=== PATIENT | male | born 1945 ===

== ENCOUNTER 2017-07-08 09:07 | Day surgery (SDC) | payer MEDICARE ==
[~2017-07-08] VITALS: Ht 177.8 cm; Wt 88.8 kg
[2017-07-08] MEDS ORDERED: LISI5 PO (09:48)
[2017-07-08] MEDS ORDERED: LEVSOD75 PO (09:48)
== END 2017-07-08 11:33 | disposition home or self-care (01) ==
LOC: ORSCSDS 09:07
PROVIDERS: Orthopaedic Surgery
PROC: 01N50ZZ Release Median Nerve, Open Approach (ICD-10-PCS; principal; 2017-07-08 10:45)
DX: G56.02 Carpal tunnel syndrome, left upper limb (principal); I10 Essential (primary) hypertension; E03.9 Hypothyroidism, unspecified; Z87.891 Personal history of nicotine dependence; Z79.899 Other long term (current) drug therapy
CPT/HCPCS: J2250; J3010; J7120

== ENCOUNTER 2017-08-26 08:13 | Day surgery (SDC) | payer MEDICARE ==
[~2017-08-26] VITALS: Ht 177.8 cm; Wt 88.9 kg
[~2017-08-26 08:13] MED LIST: LEVSOD75 PO; LISI5 PO
== END 2017-08-26 11:25 | disposition home or self-care (01) ==
LOC: ORSCSDS 08:13
PROVIDERS: Orthopaedic Surgery
PROC: 0LN70ZZ Release Right Hand Tendon, Open Approach (ICD-10-PCS; principal; 2017-08-26 10:00)
PROC: 01N50ZZ Release Median Nerve, Open Approach (ICD-10-PCS; principal; 2017-08-26 10:00)
DX: G56.01 Carpal tunnel syndrome, right upper limb (principal); M65.30 Trigger finger, unspecified finger; I10 Essential (primary) hypertension; Z79.899 Other long term (current) drug therapy; Z87.891 Personal history of nicotine dependence